=== PATIENT | female | born 1955 | race Caucasian/White ===

== ENCOUNTER 2017-06-12 22:05 | Observation (INO) | payer BC ==
[~2017-06-12] VITALS: Ht 168.9 cm; Wt 102.6 kg
[2017-06-12] MEDS ORDERED: PRAV20TA PO (22:27)
[2017-06-12] MEDS ORDERED: PRLSR20 PO (22:27)
[2017-06-12] MEDS ORDERED: LISI-461 PO (22:27)
[2017-06-12] MEDS ORDERED: ASPI81TA28 PO (22:27)
[2017-06-12] MEDS ORDERED: SODIUM CHLORIDE 0.9% 500ML 500 ML IV STA (22:50)
[2017-06-12] MEDS ORDERED: PANTOprazole INJ 80 MG in DEXTROSE 5% 100ML IV STA (22:57)
[2017-06-12] MEDS ORDERED: PANTOprazole INJ 40 MG in DEXTROSE 5% 100ML IV SCH (23:00)
[2017-06-12] MEDS ORDERED: OPTIRAY 320 IV PRN (23:00)
[2017-06-12 23:15] LABS: BASO % 0.2 %; BASO ABS # 0.02 K/uL (0-0.2); EOS % 0.4 %; EOS ABS # 0.05 K/uL (0-0.5); HEMATOCRIT 44.1 % (37-47); HEMOGLOBIN 14.8 g/dL (12.0-16.0); IG# 0.03 K/uL (0.00-0.02); LYMPH % 13.5 %; LYMPH ABS # 1.51 K/uL (1.2-3.4); MEAN CELL VOLUME 88.7 fL (80-100); MEAN CORPUSCULAR HEMOGLOBIN 29.8 pg (25-34); MEAN CORPUSCULAR HGB CONC 33.6 g/dl (32-36); MEAN PLATELET VOLUME 11.2 fL (7.4-10.4); MONO % 6.4 %; MONO ABS # 0.72 K/uL (0.11-0.59); NEUT % 79.2 %; NEUT ABS # 8.88 K/uL (1.4-6.5); PLATELET COUNT 209 K/uL (130-400); RED CELL DISTRIBUTION WIDTH CV 13.1 % (11.5-14.5); RED CELL DISTRIBUTION WIDTH SD 42.4 fL (36.4-46.3); WHITE BLOOD COUNT 11.21 K/uL (4.8-10.8)
[2017-06-12 23:27] LABS: PTT PATIENT 25.7 SECONDS (21.0-31.0)
[2017-06-12 23:37] LABS: ALBUMIN 3.8 gm/dl (3.4-5.0); ALT/SGPT 30 U/L (12-78); AST/SGOT 16 U/L (15-37); BLOOD UREA NITROGEN 14 mg/dl (7-18); CALCIUM 8.6 mg/dl (8.5-10.1); CARBON DIOXIDE 27 mmol/L (21-32); CREATININE 0.85 mg/dl (0.60-1.20); GLUCOSE 89 mg/dl (70-99); LIPASE 103 U/L (73-393); POTASSIUM 3.5 mmol/L (3.5-5.1); SODIUM 141 mmol/L (136-145)
[2017-06-12 23:42] LABS: ALKALINE PHOSPHATASE 87 U/L (45-117); TOTAL PROTEIN 7.8 gm/dl (6.4-8.2)
[2017-06-13 00:30] VITALS: Ht 168.9 cm; Wt 102.6 kg
[2017-06-13] MEDS ORDERED: ACETAMINOPHEN 325 MG TAB PO PRN ×2 (01:00→02:45)
[2017-06-13] MEDS ORDERED: ONDANSETRON INJ 2 MG/ML 2 ML VIAL IV PRN ×2 (01:00→02:45)
[2017-06-13] MEDS ORDERED: IV FLUIDS COMPLETED PRN (01:30)
--- NOTE | 2017-06-13 01:30 | History and Physical ---
History & Physical Date & Time of Service: Jun 13, 2017 at 01:20 Chief Complaint: Cramping Primary Care Physician: Darek Diop D.O. History of Present Illness Source: patient, hospital records The patient is a 62-year-old female with a past medical history of hypertension , hyperlipidemia, breast cancer that presents after an episode of syncope and bloody diarrhea. The patient states that around lunchtime today she began having lower abdominal cramping and went and had a large diarrheal bowel movement. After the bowel movement she began to have sweats and nausea, followed by a syncopal episode while she was sitting down in a chair. The patient states that she was disoriented for approximately 1 minute before she regained full consciousness. She was then taken to [facility] where she was evaluated, and workup was negative. During that time she did have a bowel movement with some blood streaks as well as a small amount of blood in the toilet. After discharge at home she again had another episode of gross blood with bowel movement, with her stating that it looked like approximately 1-2 ounces of gross blood only. The patient states she had 3 bloody bowel movements. The patient states that the abdominal discomfort she was having during this period of time was lower abdominal cramping that was about a 4 out of 10 and felt like period cramps. The patient denies any fevers , chills, chest pain, shortness of breath, or any other acute complaints. The patient states that she does have external hemorrhoids, and that she occasionally does see blood on toilet paper when she wipes but this gross blood in the toilet was different from other episodes. At this time of evaluation the patient denies any abdominal pain, cramping, nausea or vomiting Family History Noncontributory Social History Smoking Status: Never Smoker Smokeless Tobacco Use: No Alcohol Use: none Drug Use: none Occupational Status: employed Immunizations History of Influenza Vaccine: Unknown History of Tetanus Vaccine?: Unknown History of Pneumococcal: Unknown History of Hepatitis B Vaccine: Unknown Multi-Drug Resistant Organisms History of MDRO: No Allergies Coded Allergies: Lemon (Verified Adverse Reaction, Unknown, hives, 06/12/17) Home Medications Scheduled Aspirin (Aspirin Ec), 81 MG PO DAILY Lisinopril (Zestril), 10 MG PO BID Omeprazole (Prilosec), 20 MG PO DAILY Pravastatin (Pravachol ), 20 MG PO DAILY Review of Systems Constitutional: No fever, No chills, No weight loss, No fatigue Respiratory: No cough, No shortness of breath Cardiovascular: No chest pain, No palpitations Abdomen: + diarrhea, + GI bleeding, No pain, No nausea, No vomiting, No constipation Genitourinary - Female: No dysuria Endocrine: No fatigue Physical Exam Vital Signs Date Time Temp Pulse Resp B/P (MAP) Pulse Ox O2 Delivery O2 Flow Rate FiO2 06/13/17 00:10 76 18 99 06/13/17 00:01 140/90 06/12/17 23:55 72 20 97 06/12/17 23:10 70 17 96 06/12/17 22:50 95 18 97 06/12/17 22:35 71 18 97 Room Air 06/12/17 22:30 156/84 06/12/17 22:25 79 06/12/17 22:20 151/82 06/12/17 22:08 36.9 85 18 173/84 98 Room Air General Appearance: WD/WN, no apparent distress Head: normocephalic, atraumatic Eyes: normal inspection, sclerae normal Neck: supple, no carotid bruits Respiratory/Chest: chest non-tender, lungs clear, normal breath sounds Cardiovascular: regular rate, rhythm, no edema, no gallop Abdomen/GI: normal bowel sounds, non tender, soft, + pertinent finding ( external hemorrhoids) Extremities/Musculoskelatal: normal inspection, no calf tenderness, no pedal edema Neurologic/Psych: alert, normal mood/affect, oriented x 3 Diagnostics Laboratory Results Results Past 24 Hours Test 06/12/17 23:00 Range/Units White Blood Count 11.21 4.8-10.8 K/uL Red Blood Count 4.97 4.2-5.4 M/uL Hemoglobin 14.8 12.0-16.0 g/dL Hematocrit 44.1 37-47 % Mean Corpuscular Volume 88.7 80-100 fL Mean Corpuscular Hemoglobin 29.8 25-34 pg Mean Corpuscular Hemoglobin Concent 33.6 32-36 g/dl Platelet Count 209 130-400 K/uL Mean Platelet Volume 11.2 7.4-10.4 fL Neutrophils (%) (Auto) 79.2 % Lymphocytes (%) (Auto) 13.5 % Monocytes (%) (Auto) 6.4 % Eosinophils (%) (Auto) 0.4 % Basophils (%) (Auto) 0.2 % Neutrophils # (Auto) 8.88 1.4-6.5 K/uL Lymphocytes # (Auto) 1.51 1.2-3.4 K/uL Monocytes # (Auto) 0.72 0.11-0.59 K/uL Eosinophils # (Auto) 0.05 0-0.5 K/uL Basophils # (Auto) 0.02 0-0.2 K/uL RDW Standard Deviation 42.4 36.4-46.3 fL RDW Coefficient of Variation 13.1 11.5-14.5 % Immature Granulocyte % (Auto) 0.3 % Immature Granulocyte # (Auto) 0.03 0.00-0.02 K/uL Prothrombin Time 10.5 9.0-12.0 SECONDS Prothromb Time International Ratio 1.0 0.9-1.1 Activated Partial Thromboplast Time 25.7 21.0-31.0 SECONDS Partial Thromboplastin Ratio 1.0 Urine Color YELLOW Urine Appearance CLEAR CLEAR Urine pH 6.0 4.5-7.5 Urine Specific [place] 1.010 1.000-1.030 Urine Protein NEG NEG Urine Glucose (UA) NEG NEG Urine Ketones NEG NEG Urine Occult Blood TRACE NEG Urine Nitrite NEG NEG Urine Bilirubin NEG NEG Urine Urobilinogen NEG NEG Urine Leukocyte Esterase SMALL NEG Urine WBC (Auto) 1-5 0-5 /hpf Urine RBC (Auto) 0-4 0-4 /hpf Urine Hyaline Casts (Auto) 1-5 0-5 /lpf Urine Epithelial Cells (Auto) >30 0-5 /lpf Urine Bacteria (Auto) NEG NEG Sodium Level 141 136-145 mmol/L Potassium Level 3.5 3.5-5.1 mmol/L Chloride Level 108 98-107 mmol/L Carbon Dioxide Level 27 21-32 mmol/L Anion Gap 6.0 3-11 mmol/L Blood Urea Nitrogen 14 7-18 mg/dl Creatinine 0.85 0.60-1.20 mg/dl Est Creatinine Clear Calc Drug Dose 84.8 ml/min Estimated GFR () 85.7 Estimated GFR (Non- 74.0 BUN/Creatinine Ratio 16.5 10-20 Random Glucose 89 70-99 mg/dl Calcium Level 8.6 8.5-10.1 mg/dl Magnesium Level 2.0 1.8-2.4 mg/dl Total Bilirubin 0.5 0.2-1 mg/dl Direct Bilirubin 0.1 0-0.2 mg/dl Aspartate Amino Transf (AST/SGOT) 16 15-37 U/L Alanine Aminotransferase (ALT/SGPT) 30 12-78 U/L Alkaline Phosphatase 87 45-117 U/L Troponin I < 0.015 0-0.045 ng/ml Total Protein 7.8 6.4-8.2 gm/dl Albumin 3.8 3.4-5.0 gm/dl Lipase 103 73-393 U/L Impression Assessment and Plan The patient is a 62-year-old female with a past medical history of hypertension , hyperlipidemia, breast cancer that presents after an episode of syncope and bloody diarrhea 1) Acute Colitis - Observe on Med/ Surg - Abdominal CT: Appearance of acute colitis with no perforation or diverticulitis - Full Liquid Diet - H/H stable since discharge from [facility] - Received 500cc bolus in the ED and Protonix Drip - Protonix 40mg IV Daily - Stool Culture and Stool C Diff 2) HLD - Hold home Pravastatin 3) HTN - Hold home Lisinopril 4) CAD - Hold home Aspirin 5) DVT - SCDs 6) Code Status - Full Resuscitation Attending addendum: I have physically seen this patient, have supervised the medical residents activities, and agree with the H&P unless as otherwise noted. Assessment and Plan: Transverse and Descending Colon Colitis/rectal bleeding-- Admitted to the medical surgical floor She questions the possibility of intolerance to chocolate pudding eaten earlier in the day Stool culture and stool for C. difficile Continue IV fluids Protonix 40 mg IV daily Zofran 4 mg IV every 6 hours when necessary Full liquid diet CAD/hypertension-- Lisinopril and aspirin Hyperlipidemia-- Hold Pravastatin Level of Care Med/Surg Advanced Directives Existing Advance Directive: No Existing Living Will: No Existing Power of Dumpcart Driver: No Resuscitation Status FULL RESUSCITATION VTE Prophylaxis VTE Risk Assessment Done? Y/N: Yes Risk Level: Moderate Given or contraindicated: SCD's Social Service Consult None Apply
[2017-06-13 02:05] VITALS: BP 159/84; PULSE 78; TEMP 36.6; O2SAT 97
--- NOTE | 2017-06-13 03:59 | EMERGENCY ROOM VISIT NOTE ---
History First contact with patient: 22:38 Chief Complaint: GI ASSESSMENT Stated Complaint: GI BLEED Nursing Triage Summary: Syncopal episode at work, went to [facility]. Had diarrhea with blood, Hx of hemmrhoids. Had chest x-ray, head CT, blood work, urine and blood cultures. Dx with vasovagal syncope. Now having abd cramping with large amount of hematochezia with clots. Earlier dizziness, not currently. 81 ASA daily, no blood thinners. History of Present Illness The patient is a 62 year old female who presents to the Emergency Room with complaints of bloody diarrhea for the past few hours. 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 After that she became diaphoretic and weak and sat down and briefly passed out. She went to [facility] and had a negative CT scan and workup. She had another episode of diarrhea and there was some few specks of blood. Nothing overly concerning. No black stool. Patient states she went home and had 3 episodes of large bloody diarrhea that was just mainly blood. No black in it. No history GI bleeding in the past. She is on a baby aspirin. Colonoscopy for years ago was negative per patient. No history diverticulitis. Patient describes the abdominal pain as cramping, ranging in severity 4-10 to the lower abdomen. Nothing makes it better or worse. It does not radiate. Patient denies chest pain, dyspnea, fever, chills, cough, congestion, back pain, vomiting, urinary symptoms. No recent antibiotics. Review of Systems See HPI for pertinent positives & negatives. A total of 10 systems reviewed and were otherwise negative. Past Medical/Surgical History Medical Problems: (1) GI bleed Social History Smoking Status: Never Smoker Current/Historical Medications Scheduled Aspirin (Aspirin Ec), 81 MG PO DAILY Lisinopril (Zestril), 10 MG PO BID Omeprazole (Prilosec), 20 MG PO DAILY Pravastatin (Pravachol ), 20 MG PO DAILY Physical Exam Vital Signs Date Time Temp Pulse Resp B/P (MAP) Pulse Ox O2 Delivery O2 Flow Rate FiO2 06/13/17 01:00 74 23 159/89 96 06/13/17 00:45 77 16 99 06/13/17 00:30 73 24 147/80 99 06/13/17 00:30 Room Air 06/13/17 00:15 68 15 97 06/13/17 00:10 76 18 99 06/13/17 00:01 140/90 06/12/17 23:55 72 20 97 06/12/17 23:10 70 17 96 06/12/17 22:50 95 18 97 06/12/17 22:35 71 18 97 Room Air 06/12/17 22:30 156/84 06/12/17 22:25 79 06/12/17 22:20 151/82 06/12/17 22:08 36.9 85 18 173/84 98 Room Air Physical Exam VITALS: Vitals are noted on the nurse's note and reviewed by myself. Vital signs hypertensive GENERAL: Pleasant female anxious-appearing, in no acute distress, nondiaphoretic , well-developed well-nourished. SKIN: The skin was without rashes, erythema, edema, or bruising. There is no tenting of the skin. Capillary reflex less than 2 seconds. HEAD: Normocephalic atraumatic. EARS: External auditory canals clear, tympanic membranes pearly heart without erythema or effusion bilaterally. EYES: Pupils equal round and reactive to light and accommodation. Conjunctivae without injection, sclerae without icterus. Extraocular movements intact. NOSE: Patent, turbinates without inflammation or discharge. MOUTH: Mucous membranes mildly dry. Pharynx without erythema or exudate. Uvula midline. Airway patent. Tongue does not deviate. NECK: Supple without nuchal rigidity. No lymphadenopathy. No thyromegaly. Cervical spine is nontender. No JVD. HEART: Regular rate and rhythm LUNGS: Clear to auscultation bilaterally without wheezes, rales or rhonchi. No dullness to percussion. No retractions or accessory muscle use. ABDOMEN: Positive bowel sounds x 4. Normal tympanic percussion. Soft, tender to palpation lower abdomen, no CVA tenderness, without masses or organomegaly. Tapia sign negative. No guarding or rebound tenderness. Rectal exam: No fissures or tears, hemorrhoids present, bright red blood in the vault. MUSCULOSKELETAL: No muscle atrophy, erythema, or edema noted. NEURO: Patient was alert and oriented to person place and time. Normal sensation to light and sharp touch. No focal neurological deficits. Medical Decision & Procedures Laboratory Results 06/12/17 23:00 Red Blood Count 4.97, Mean Corpuscular Volume 88.7, Mean Corpuscular Hemoglobin 29.8, Mean Corpuscular Hemoglobin Concent 33.6, Mean Platelet Volume 11.2, Neutrophils (%) (Auto) 79.2, Lymphocytes (%) (Auto) 13.5, Monocytes (%) (Auto) 6.4, Eosinophils (%) (Auto) 0.4, Basophils (%) (Auto) 0.2, Neutrophils # (Auto) 8.88, Lymphocytes # (Auto) 1.51, Monocytes # (Auto) 0.72, Eosinophils # (Auto) 0.05, Basophils # (Auto) 0.02 06/12/17 23:00 Test 06/12/17 23:00 White Blood Count 11.21 K/uL (4.8-10.8) Red Blood Count 4.97 M/uL (4.2-5.4) Hemoglobin 14.8 g/dL (12.0-16.0) Hematocrit 44.1 % (37-47) Mean Corpuscular Volume 88.7 fL (80-100) Mean Corpuscular Hemoglobin 29.8 pg (25-34) Mean Corpuscular Hemoglobin Concent 33.6 g/dl (32-36) Platelet Count 209 K/uL (130-400) Mean Platelet Volume 11.2 fL (7.4-10.4) Neutrophils (%) (Auto) 79.2 % Lymphocytes (%) (Auto) 13.5 % Monocytes (%) (Auto) 6.4 % Eosinophils (%) (Auto) 0.4 % Basophils (%) (Auto) 0.2 % Neutrophils # (Auto) 8.88 K/uL (1.4-6.5) Lymphocytes # (Auto) 1.51 K/uL (1.2-3.4) Monocytes # (Auto) 0.72 K/uL (0.11-0.59) Eosinophils # (Auto) 0.05 K/uL (0-0.5) Basophils # (Auto) 0.02 K/uL (0-0.2) RDW Standard Deviation 42.4 fL (36.4-46.3) RDW Coefficient of Variation 13.1 % (11.5-14.5) Immature Granulocyte % (Auto) 0.3 % Immature Granulocyte # (Auto) 0.03 K/uL (0.00-0.02) Prothrombin Time 10.5 SECONDS (9.0-12.0) Prothromb Time International Ratio 1.0 (0.9-1.1) Activated Partial Thromboplast Time 25.7 SECONDS (21.0-31.0) Partial Thromboplastin Ratio 1.0 Urine Color YELLOW Urine Appearance CLEAR (CLEAR) Urine pH 6.0 (4.5-7.5) Urine Specific [place] 1.010 (1.000-1.030) Urine Protein NEG (NEG) Urine Glucose (UA) NEG (NEG) Urine Ketones NEG (NEG) Urine Occult Blood TRACE (NEG) Urine Nitrite NEG (NEG) Urine Bilirubin NEG (NEG) Urine Urobilinogen NEG (NEG) Urine Leukocyte Esterase SMALL (NEG) Urine WBC (Auto) 1-5 /hpf (0-5) Urine RBC (Auto) 0-4 /hpf (0-4) Urine Hyaline Casts (Auto) 1-5 /lpf (0-5) Urine Epithelial Cells (Auto) >30 /lpf (0-5) Urine Bacteria (Auto) NEG (NEG) Anion Gap 6.0 mmol/L (3-11) Est Creatinine Clear Calc Drug Dose 84.8 ml/min Estimated GFR () 85.7 Estimated GFR (Non- 74.0 BUN/Creatinine Ratio 16.5 (10-20) Calcium Level 8.6 mg/dl (8.5-10.1) Magnesium Level 2.0 mg/dl (1.8-2.4) Total Bilirubin 0.5 mg/dl (0.2-1) Direct Bilirubin 0.1 mg/dl (0-0.2) Aspartate Amino Transf (AST/SGOT) 16 U/L (15-37) Alanine Aminotransferase (ALT/SGPT) 30 U/L (12-78) Alkaline Phosphatase 87 U/L (45-117) Troponin I < 0.015 ng/ml (0-0.045) Total Protein 7.8 gm/dl (6.4-8.2) Albumin 3.8 gm/dl (3.4-5.0) Lipase 103 U/L (73-393) Medications Administered Medications (Trade) Dose Ordered Sig/Suraj Route Start Time Stop Time Status Last Admin Dose Admin Sodium Chloride 500 ml @ 999 mls/hr Q31M STAT IV 06/12/17 22:50 06/12/17 23:20 DC 06/13/17 00:14 999 MLS/HR Pantoprazole Sodium 80 mg/ Dextrose 120 ml @ 480 mls/hr NOW STAT IV 06/12/17 22:57 06/12/17 23:11 DC 06/12/17 23:10 480 MLS/HR Pantoprazole Sodium 40 mg/ Dextrose 100 ml @ 20 mls/hr Q5H IV 06/12/17 23:00 06/13/17 03:59 06/12/17 23:47 20 MLS/HR ED Course Prior records/ancillary studies reviewed. Triage Nursing notes reviewed. Additional history obtained from the family. The patient's history was concerning for possible gastrointestinal bleeding. Differential diagnosis: Etiologies such as diverticulosis, AVM, coagulopathy, colitis, inflammatory bowel disease, malignancy, Kaila-Napier tear, esophagitis, peptic ulcer disease , variceal bleed, gastritis, fissure, hemorrhoids, as well as others were entertained. Physical exam: As above. The patients vital signs were stable. ER treatment provided: Protonix drip, IV fluids On reassessment the patient felt better. Diagnostics interpreted by me: ECG: Normal sinus, normal intervals, no acute ST-T wave changes. Impression normal sinus rhythm interpreted by myself The labs revealed stable H&H. Blood bank pending Imaging studies: CT concerning for colitis per stat radiology I obtain the records from [facility] and did review them. Patient had a negative head scan. Stable H&H. Consultation: A consultation was placed with Dr. Lino, hospitalist. The case was discussed and diagnostics were reviewed. The patient was evaluated in the ER for further treatment. This appears to be consistent with colitis with GI bleeding. Patient is stable H&H. She was not actively bleeding here in the ER. CT scan concerning for colitis. She's had 3 large episodes of bloody diarrhea. She will be evaluated by medicine. She is hydrated as above and started on Protonix. She is on a baby aspirin. No history GI bleeding in the past.. By the evaluation outlined above emergent etiologies such as esophageal perforation, peptic ulcer disease, variceal bleed, coagulopathy, gastritis, epistaxis, malignancy, as well as others were deemed relatively unlikely. The pt informed about the findings as listed above. All questions were answered and pleased with the treatment. Case reviewed with my attending The chart was completed utilizing kwiry Speech voice recognition software. Grammatical errors, random word insertions, pronoun errors, and incomplete sentences are an occassional consequence of this system due to software limitations, ambient noise, and hardware issues. Any formal questions or concerns about the content, text, or information contained within the body of this dictation should be directly addressed to the physician pediatric medical assistant for clarification. Medical Decision As above Medication Reconcilliation Current Medication List: was personally reviewed by me Blood Pressure Screening Patient's blood pressure: Elevated blood pressure Blood pressure disposition: Elevated BP felt to be situational Impression Primary Impression: GI bleed Additional Impression: Colitis Departure Information Dispostion Still a Patient Condition FAIR Referrals Darek Diop D.O. (PCP) Forms HOME CARE DOCUMENTATION FORM, IMPORTANT VISIT INFORMATION Patient Instructions My [facility] Problem Qualifiers Primary Impression: GI bleed GI bleed type/associated pathology: unspecified gastrointestinal hemorrhage type Qualified Codes: K92.2 - Gastrointestinal hemorrhage, unspecified
[2017-06-13 07:23] VITALS: BP 145/79; PULSE 73; TEMP 36.7; O2SAT 97
--- NOTE | 2017-06-13 07:31 | DIAGNOSTIC IMAGING REPORT ---
ABDOMEN AND PELVIS CT WITH IV CONTRAST CT DOSE: 950.20 mGy.cm HISTORY: Lower abdominal pain. Rectal bleeding. TECHNIQUE: Multiaxial CT images of the abdomen and pelvis were performed following the use of intravenous contrast. A dose lowering technique was utilized adhering to the principles of ALARA. COMPARISON STUDY: None. FINDINGS: Linear densities within the lung bases likely represent subsegmental atelectasis. No pneumoperitoneum. No pneumatosis. No suspicious lytic or blastic osseous lesions. Cholecystectomy. The liver, pancreas, spleen, and adrenal glands are unremarkable. No hydronephrosis. Normal right kidney. A 9 mm hypodense lesion within the upper pole of the left kidney. This is too small to characterize but favors a cyst. The bladder is unremarkable. Hysterectomy. A few colonic diverticula. No evidence for bowel obstruction. Moderate thickening involving the splenic flexure of the colon and descending colon with mild pericolonic fat stranding. This is consistent with a nonspecific colitis. Of note, the celiac and mesenteric vessels appear patent. The appendix appears surgically absent. IMPRESSION: 1. Moderate bowel wall thickening involving the splenic flexure of the colon and descending colon consistent with a nonspecific colitis. This could be due to an infectious, inflammatory, or ischemic process. 2. No evidence for bowel obstruction. 3. Cholecystectomy and hysterectomy. Electronically signed by: Gabe Paul M.D. 06/13/2017 7:29 AM Dictated Date/Time: 06/13/2017 7:25 AM
[2017-06-13] MEDS ORDERED: PANTOprazole INJ 40 MG in SYRINGE 0 ML IV SCH ×2 (09:00→11:00)
[2017-06-13 11:06] LABS: HEMATOCRIT 42.6 % (37-47); HEMOGLOBIN 14.7 g/dL (12.0-16.0)
[2017-06-13 13:08] LABS: ISTAT CREATININE 0.8 mg/dl (0.6-1.3); ISTAT IONIZED CALCIUM 1.12 mmol/l (1.12-1.32); ISTAT POTASSIUM 3.5 mEq/L (3.3-5.0)
[2017-06-13 15:28] VITALS: BP 160/92; PULSE 70; TEMP 37.1; O2SAT 96
[2017-06-13 16:00] VITALS: O2SAT 96
--- NOTE | 2017-06-13 16:43 | Family Medicine Progress Note ---
Progress Note Date of Service Jun 13, 2017. Subjective Pt evaluation today including: conversation w/ patient, conversation w/ family , physical exam, chart review, lab review, review of studies, review of inpatient medication list Pain: Patient reports some cramping, but no pain PO Intake: Full liquid diet Voiding: no voiding problems Patient continues to report small volume liquid stool with rommel blood in the bowl. Constitutional: No fever, No chills, No sweats, No weight loss, No weakness , No fatigue, No problem reported Respiratory: No cough, No sputum, No wheezing, No shortness of breath, No dyspnea on exertion, No dyspnea at rest, No hemoptysis, No problem reported Cardiovascular: No chest pain, No orthopnea, No PND, No edema, No claudication, No palpitations, No problem reported Abdomen: + see HPI, + GI bleeding, + problem reported (cramping and mucous in stool reported), No pain, No nausea, No vomiting, No diarrhea, No constipation Female : No dysuria, No urinary frequency, No hematuria, No incontinence, No abnormal vaginal bleeding, No vaginal discharge, No problem reported All Other Systems: Reviewed and Negative Medications Current Inpatient Medications Medications (Trade) Dose Ordered Sig/Suraj Route Start Time Stop Time Status Last Admin Dose Admin Ioversol (Optiray 320) 100 ml UD PRN IV 06/12/17 23:00 06/16/17 22:59 Miscellaneous (Iv Fluids Completed) 1 ea PRN PRN N/A 06/13/17 01:30 06/13/18 01:29 Acetaminophen (Tylenol Tab) 650 mg Q4H PRN PO 06/13/17 02:45 07/13/17 02:44 Ondansetron HCl (Zofran Inj) 4 mg Q6H PRN IV 06/13/17 02:45 07/13/17 02:44 Pantoprazole Sodium 40 mg/ Syringe 10 ml @ 5 mls/min DAILY@11 IV 06/13/17 11:00 07/13/17 10:59 06/13/17 11:18 5 MLS/MIN Objective Vital Signs Date Time Temp Pulse Resp B/P (MAP) Pulse Ox O2 Delivery O2 Flow Rate FiO2 06/13/17 15:28 37.1 70 18 160/92 (114) 96 Room Air 06/13/17 10:56 Room Air 06/13/17 07:23 36.7 73 16 145/79 (101) 97 06/13/17 02:05 36.6 78 18 159/84 (109) 97 Room Air 06/13/17 02:05 Room Air 06/13/17 01:50 64 15 97 06/13/17 01:35 82 18 95 06/13/17 01:30 143/92 06/13/17 01:20 68 21 97 06/13/17 01:15 68 14 98 06/13/17 01:00 74 23 159/89 96 06/13/17 00:45 77 16 99 06/13/17 00:30 73 24 147/80 99 06/13/17 00:30 Room Air 06/13/17 00:15 68 15 97 06/13/17 00:10 76 18 99 06/13/17 00:01 140/90 06/12/17 23:55 72 20 97 06/12/17 23:10 70 17 96 06/12/17 22:50 95 18 97 06/12/17 22:35 71 18 97 Room Air 06/12/17 22:30 156/84 06/12/17 22:25 79 06/12/17 22:20 151/82 06/12/17 22:08 36.9 85 18 173/84 98 Room Air Physical Exam General Appearance: WD/WN, no apparent distress Eyes: normal inspection, PERRL, EOMI ENT: normal ENT inspection, hearing grossly normal, pharynx normal Neck: supple, no adenopathy, no JVD Respiratory/Chest: chest non-tender, lungs clear, normal breath sounds, no respiratory distress, no accessory muscle use Cardiovascular: regular rate, rhythm, no edema, no gallop, no JVD, no murmur Abdomen: normal bowel sounds, non tender, soft, no organomegaly, no pulsatile mass Extremities: normal range of motion, non-tender, normal inspection, no pedal edema, no calf tenderness 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, no motor/sensory deficits, alert, normal mood/affect, oriented x 3 Skin: normal color, warm/dry, no rash Laboratory Results 06/12/17 23:00 Red Blood Count 4.97, Mean Corpuscular Volume 88.7, Mean Corpuscular Hemoglobin 29.8, Mean Corpuscular Hemoglobin Concent 33.6, Mean Platelet Volume 11.2, Neutrophils (%) (Auto) 79.2, Lymphocytes (%) (Auto) 13.5, Monocytes (%) (Auto) 6.4, Eosinophils (%) (Auto) 0.4, Basophils (%) (Auto) 0.2, Neutrophils # (Auto) 8.88, Lymphocytes # (Auto) 1.51, Monocytes # (Auto) 0.72, Eosinophils # (Auto) 0.05, Basophils # (Auto) 0.02 06/13/17 10:41 06/12/17 23:00 Test 06/12/17 23:00 06/12/17 23:10 06/13/17 16:18 White Blood Count 11.21 K/uL (4.8-10.8) Red Blood Count 4.97 M/uL (4.2-5.4) Hemoglobin 14.8 g/dL (12.0-16.0) Hematocrit 44.1 % (37-47) Mean Corpuscular Volume 88.7 fL (80-100) Mean Corpuscular Hemoglobin 29.8 pg (25-34) Mean Corpuscular Hemoglobin Concent 33.6 g/dl (32-36) Platelet Count 209 K/uL (130-400) Mean Platelet Volume 11.2 fL (7.4-10.4) Neutrophils (%) (Auto) 79.2 % Lymphocytes (%) (Auto) 13.5 % Monocytes (%) (Auto) 6.4 % Eosinophils (%) (Auto) 0.4 % Basophils (%) (Auto) 0.2 % Neutrophils # (Auto) 8.88 K/uL (1.4-6.5) Lymphocytes # (Auto) 1.51 K/uL (1.2-3.4) Monocytes # (Auto) 0.72 K/uL (0.11-0.59) Eosinophils # (Auto) 0.05 K/uL (0-0.5) Basophils # (Auto) 0.02 K/uL (0-0.2) RDW Standard Deviation 42.4 fL (36.4-46.3) RDW Coefficient of Variation 13.1 % (11.5-14.5) Immature Granulocyte % (Auto) 0.3 % Immature Granulocyte # (Auto) 0.03 K/uL (0.00-0.02) Prothrombin Time 10.5 SECONDS (9.0-12.0) Prothromb Time International Ratio 1.0 (0.9-1.1) Activated Partial Thromboplast Time 25.7 SECONDS (21.0-31.0) Partial Thromboplastin Ratio 1.0 Urine Color YELLOW Urine Appearance CLEAR (CLEAR) Urine pH 6.0 (4.5-7.5) Urine Specific [place] 1.010 (1.000-1.030) Urine Protein NEG (NEG) Urine Glucose (UA) NEG (NEG) Urine Ketones NEG (NEG) Urine Occult Blood TRACE (NEG) Urine Nitrite NEG (NEG) Urine Bilirubin NEG (NEG) Urine Urobilinogen NEG (NEG) Urine Leukocyte Esterase SMALL (NEG) Urine WBC (Auto) 1-5 /hpf (0-5) Urine RBC (Auto) 0-4 /hpf (0-4) Urine Hyaline Casts (Auto) 1-5 /lpf (0-5) Urine Epithelial Cells (Auto) >30 /lpf (0-5) Urine Bacteria (Auto) NEG (NEG) Est Creatinine Clear Calc Drug Dose 84.8 ml/min Estimated GFR () 85.7 Estimated GFR (Non- 74.0 BUN/Creatinine Ratio 16.5 (10-20) Calcium Level 8.6 mg/dl (8.5-10.1) Magnesium Level 2.0 mg/dl (1.8-2.4) Total Bilirubin 0.5 mg/dl (0.2-1) Direct Bilirubin 0.1 mg/dl (0-0.2) Aspartate Amino Transf (AST/SGOT) 16 U/L (15-37) Alanine Aminotransferase (ALT/SGPT) 30 U/L (12-78) Alkaline Phosphatase 87 U/L (45-117) Troponin I < 0.015 ng/ml (0-0.045) Total Protein 7.8 gm/dl (6.4-8.2) Albumin 3.8 gm/dl (3.4-5.0) Lipase 103 U/L (73-393) Bedside Hemoglobin 15.0 g/dl (12.0-16.0) Bedside Hematocrit 44 % (37-47) Bedside Sodium 142 mEq/L (135-144) Bedside Potassium 3.5 mEq/L (3.3-5.0) Bedside Chloride 105 mEq/L (101-112) Bedside Total CO2 24 mEq/l (24-31) Anion Gap 17.0 mmol/L (16-25) Bedside Blood Urea Nitrogen 14 mg/dl (7-18) Bedside Creatinine 0.8 mg/dl (0.6-1.3) Bedside Glucose (other) 93 mg/dl (70-99) Bedside Ionized Calcium (Candis) 1.12 mmol/l (1.12-1.32) Date/Time Source Procedure Growth Status 06/13/17 00:00 Stool C.difficile Toxin B Gene (PCR) - Final No C. difficile toxin B gene detected Complete Assessment and Plan The patient is a 62-year-old female with a past medical history of hypertension , hyperlipidemia, breast cancer that presents after an episode of syncope and bloody diarrhea Rectal bleeding with Acute Colitis noted on CT scan - Abdominal CT: Appearance of acute colitis with no perforation or diverticulitis - H/H stable since discharge from [facility]: Hgb of 14.7 - Protonix 40mg IV Daily - Full Liquid Diet - Stool C Diff NEGATIVE - Stool Culture, shiga toxin pending - GI consult placed, appreciate recommendations, patient for colonoscopy tomorrow. - Lactic acid level normal Syncope - Presentation consistent with vasovagal. follow HLD - Hold home Pravastatin HTN - Hold home Lisinopril CAD - Hold home Aspirin Code: Full DVTP: SCDs Dispo: Med/surg; likely discharge next 24-48 hrs Resident Tracking Resident Involvement: Resident Care Provided Care Provided: Adult Hospital Medicine Reviewed: Pt Seen/Exam by Me History had some more rectal bleeding this morning. blood looked old and not like yesterday when it was fresh. syncopal event yesterday - preceded by feeling hot and clammy Constitutional: denies: fever Respiratory: negative: short of breath Cardiovascular: denies chest pain Gastrointestinal/Abdominal: negative: abdominal pain General Appearance: no apparent distress Respiratory: lungs clear, no respiratory distress Cardiovascular: regular rate, rhythm Gastrointestinal: normal bowel sounds, non tender, soft Neurologic/Psychiatric: alert, oriented x 3 Assessment/Plan Resident Physician Supervision Note: I independently interviewed and examined the patient and verified the davis history and physical, reviewed labs and image studies, discussed the case with the resident Dr. Hernandez and agree with the findings and care plan.
--- NOTE | 2017-06-13 17:36 | GASTROINTESTINAL CONSULTATION ---
DATE OF CONSULTATION: 06/13/2017 REASON FOR EVALUATION: Rectal bleeding. HISTORY OF PRESENT ILLNESS: The patient is a 62-year-old who was at work yesterday afternoon and had the urge to move her bowels. She had a little bit of a bloody bowel movement and became syncopal and passed out. She was transferred to [facility] where she was found to have a normal blood count. She was released from the hospital, but then after she got home, she had a very explosive bloody bowel movement with some crampy left lower quadrant pain and was brought to [facility] today. CT scan of the abdomen shows some thickening of the left colon consistent with a colitis. Stool specimen has been obtained for culture and C. diff and she has been hospitalized for further evaluation. She did have a colonoscopy 3 years ago in [place] which she reports is being totally normal without polyps, irritation or diverticulosis. PAST MEDICAL HISTORY: Remarkable for breast cancer. She also has hypertension and hyperlipidemia. MEDICATIONS: Aspirin, Zestril, Prilosec, and Pravachol. ALLERGIES: MARISELA. SOCIAL HISTORY: The patient is employed, does not smoke. FAMILY HISTORY: Noncontributory except that her father did have colon polyps. REVIEW OF SYSTEMS: The patient is having a little bit of cramping across the mid section of her abdomen at this time. PHYSICAL EXAMINATION: GENERAL: The patient appears in no acute distress. VITAL SIGNS: Blood pressure is 140/90 and pulse 76. She is afebrile. ABDOMEN: Shows laparoscopic scars of hysterectomy for endometriosis and a tubal ligation and there are no masses or tenderness. Liver and spleen were normal. LUNGS: Clear. HEART: Showed normal S1 and S2, regular rate and rhythm without murmurs, rubs, or gallops. LABORATORY DATA: Shows a white count of 11.21, hemoglobin 14.8, platelets are 209,000. BUN is 14, creatinine 0.85. Liver tests are normal. IMPRESSION: The patient is having some rectal bleeding of unclear etiology. This is acute onset with some thickening of the left colon on CT scan, this could represent an infection and stool culture and Clostridium difficile are pending. PLAN: I plan on proceeding with a bowel prep and a colonoscopy tomorrow for further evaluation. In the meantime, we will also get a lactic acid level.
[2017-06-13] MEDS: LAVAGE SOLUTION 4000ML PO SCH (18:35)
[2017-06-13 22:38] VITALS: BP 135/82; PULSE 68; TEMP 36.6; O2SAT 96
[2017-06-14] VITALS: O2SAT 96
[2017-06-14] MEDS: LAVAGE SOLUTION 4000ML PO SCH (06:00)
[2017-06-14 06:12] LABS: BASO % 0.3 %; BASO ABS # 0.02 K/uL (0-0.2); EOS % 2.3 %; EOS ABS # 0.16 K/uL (0-0.5); HEMATOCRIT 42.4 % (37-47); HEMOGLOBIN 14.4 g/dL (12.0-16.0); IG# 0.01 K/uL (0.00-0.02); LYMPH % 26.4 %; LYMPH ABS # 1.87 K/uL (1.2-3.4); MEAN CORPUSCULAR HEMOGLOBIN 29.9 pg (25-34); MONO % 7.8 %; MONO ABS # 0.55 K/uL (0.11-0.59); NEUT % 63.1 %; NEUT ABS # 4.46 K/uL (1.4-6.5); PLATELET COUNT 186 K/uL (130-400); RED CELL DISTRIBUTION WIDTH CV 13.1 % (11.5-14.5); RED CELL DISTRIBUTION WIDTH SD 41.9 fL (36.4-46.3); WHITE BLOOD COUNT 7.07 K/uL (4.8-10.8)
[2017-06-14 07:43] VITALS: BP 144/83; PULSE 66; TEMP 36.7; O2SAT 94
[2017-06-14 08:00] VITALS: O2SAT 96
--- NOTE | 2017-06-14 11:15 | History & Physical Bridge Note ---
H&P Re-Evaluation Bridge Note: I have examined the patient, reviewed the History & Physical and in the interval since the performance of the History & Physical I have noted the following changes of clinical significance: No changes noted
[2017-06-14] MEDS ORDERED: SODIUM CHLORIDE 0.9% 500ML 500 ML IV ONE (11:30)
[2017-06-14] MEDS ORDERED: EpHEDrine SULFATE INJ 50 MG/ML AMP IV PRN (11:45)
[2017-06-14] MEDS ORDERED: ATROPINE SULFATE 0.1 MG/ML 5ML SYR IV PRN (11:45)
[2017-06-14] MEDS ORDERED: LIDOCAINE HCL 2% 2 ML VIAL (20MG/ML) ONE (11:54)
[2017-06-14] MEDS ORDERED: PROPOFOL IV EMULSION 10 MG/ML 20 ML VIAL IV ONE ×2 (11:54)
--- NOTE | 2017-06-14 12:10 | Anesthesiology Progress Note ---
Anesthesia Post Op Note Date & Time Jun 14, 2017 at 12:10 Vital Signs Pain Intensity: 0.0 Vital Signs Past 12 Hours Date Time Temp Pulse Resp B/P (MAP) Pulse Ox O2 Delivery O2 Flow Rate FiO2 06/14/17 12:00 67 20 132/87 (102) 97 Room Air 06/14/17 11:10 36.7 73 18 152/76 (101) 98 Room Air 06/14/17 08:00 96 Room Air 06/14/17 07:43 36.7 66 16 144/83 (103) 94 Notes Mental Status: alert / awake / arousable, participated in evaluation Pt Amnestic to Procedure: Yes Nausea / Vomiting: adequately controlled Pain: adequately controlled Airway Patency, RR, SpO2: stable & adequate BP & HR: stable & adequate Hydration State: stable & adequate Anesthetic Complications: no major complications apparent
--- NOTE | 2017-06-14 12:15 | GI REPORT ---
Procedure Date: 06/14/2017 11:22 AM Procedure: Colonoscopy Indications: Generalized abdominal pain, Hematochezia Medicines: Propofol per Anesthesia Complications: No immediate complications. Estimated blood loss: Minimal. Estimated Blood Loss: Estimated blood loss was minimal. Procedure: Pre-Anesthesia Assessment: - Prior to the procedure, a History and Physical was performed, and patient medications and allergies were reviewed. The patient's tolerance of previous anesthesia was also reviewed. The risks and benefits of the procedure and the sedation options and risks were discussed with the patient. All questions were answered, and informed consent was obtained. Prior Anticoagulants: The patient has taken no previous anticoagulant or antiplatelet agents. ASA Grade Assessment: II - A patient with mild systemic disease. After reviewing the risks and benefits, the patient was deemed in satisfactory condition to undergo the procedure. After I obtained informed consent, the scope was passed under direct vision. Throughout the procedure, the patient's blood pressure, pulse, and oxygen saturations were monitored continuously. The Scope was introduced through the anus and advanced to the terminal ileum, with identification of the appendiceal orifice and IC valve. The colonoscopy was performed without difficulty. The patient tolerated the procedure well. The quality of the bowel preparation was good. Findings: The perianal and digital rectal examinations were normal. Pertinent negatives include normal sphincter tone, no palpable rectal lesions and no anal lesion or abnormality was detected. Localized moderate inflammation characterized by congestion (edema), erosions and erythema was found from 40 to 50 cm proximal to the anus. Biopsies were taken with a cold forceps for histology. Estimated blood loss was minimal. Verification of patient identification for the specimen was done by the physician and emissions testing technician using the patient's name and medical record number. The exam was otherwise without abnormality. The terminal ileum appeared normal. Non-bleeding external and internal hemorrhoids were found during retroflexion. The hemorrhoids were mild. The exam was otherwise without abnormality. Impression: - Localized moderate inflammation was found from 40 to 50 cm proximal to the anus secondary to ischemic colitis. Biopsied. - The examination was otherwise normal. - The examined portion of the ileum was normal. - Non-bleeding external and internal hemorrhoids. - The examination was otherwise normal. Recommendation: - Discharge patient to home (ambulatory). - Resume regular diet. - Continue present medications. - Await pathology results. - Repeat colonoscopy for surveillance based on pathology results. - Return to referring physician as previously scheduled. MD Joon Goodwin MD 06/14/2017 12:10:30 PM This report has been signed electronically. Note Initiated On: 06/14/2017 11:22 AM I attest to the content of the Intraoperative Record and orders documented therein, exceptions below
--- NOTE | 2017-06-14 12:50 | Discharge Instructions ---
Discharge Instructions Date of Service Jun 14, 2017. Admission Reason for Admission: Gi Bleed Discharge Discharge Diagnosis / Problem: GI Bleed Discharge Goals Goal(s): Decrease discomfort, Learn about illness Activity Recommendations Activity Limitations: per Instructions/Follow-up section . Instructions / Follow-Up Instructions / Follow-Up During this admission you were investigated for rectal bleeding. Fortunately your bleeding improved throughout your stay. Your colonoscopy showed some colitis, which may or may not correlate with your bleeding. You should follow up with your primary care physician to await results of the biopsies that were taken. Resume your normal diet and medications. Depending on what the biopsies show, this may change when your next colonoscopy will be. Your stool was negative for c.dif infection, and there has been no growth to date for e. coli, shigella, salmonella, or campylobacter, which is a good sign. If any of your symptoms return, please present to your PCP or the ED. Follow up with your primary care physician within the next week to discuss this hospital stay. Current Hospital Diet Patient's current hospital diet: Clear Liquid Diet Discharge Diet Recommended Diet: Regular Diet Procedures Procedures Performed: Colonoscopy with bx Pending Studies Studies pending at discharge: yes List of pending studies: Final stool cultures; preliminary results have been negative. Medical Emergencies . Who to Call and When: Medical Emergencies: If at any time you feel your situation is an emergency, please call 911 immediately. . Non-Emergent Contact Non-Emergency issues call your: Primary Care Provider . . "Provider Documentation" section prepared by Iman Hernandez. . VTE Core Measure Inpt VTE Proph given/why not?: SCD's
[2017-06-14 13:02] VITALS: BP 162/94; PULSE 61; TEMP 36.7; O2SAT 96
--- NOTE | 2017-06-14 14:39 | GASTROENTEROLOGY PROGRESS NOTE ---
DATE: 06/14/2017 GASTROENTEROLOGY UPDATE SUBJECTIVE: The patient underwent a colonoscopy today. There was evidence of ischemic colitis changes from 40-50 cm in the left colon (descending region). Biopsies were taken. There were no other lesions detected into the terminal ileal. The patient's symptoms were most consistent with ischemic colitis (abdominal pain followed by diarrhea that became bloody). Would resume all of her outpatient medications. It may be reasonable to have the CT scan reviewed for any evidence of vascular insufficiency for her history of ischemic colitis, although this is the first time event for her. Dr. Sage will be covering the GI service this weekend. KAMAR
--- NOTE | 2017-06-15 00:06 | Discharge Summary ---
Discharge Summary Date of Service Jun 14, 2017. Discharge Summary Admission Date: Jun 13, 2017 at 01:13 Discharge Date: Jun 14, 2017 Discharge Disposition: Home Principal Diagnosis: Acute GI bleed Problems/Secondary Diagnoses: HTN, HLD, Breast Cancer Immunizations: Have You Had Influenza Vaccine: Unknown History of Tetanus Vaccine?: Unknown History of Pneumococcal: Unknown History of Hepatitis B Vaccine: Unknown Medication Reconciliation Continued Medications: Aspirin (Aspirin Ec) 81 Mg Tab 81 MG PO DAILY Lisinopril (Zestril) 10 Mg Tab 10 MG PO BID, TAB Omeprazole (Prilosec) 20 Mg Capcr 20 MG PO DAILY, CAP Pravastatin (Pravachol ) 20 Mg Tab 20 MG PO DAILY, TAB Discharge Exam ROS: Constitutional: No fever, No chills, No sweats, No weight loss, No weakness, No fatigue, No problem reported Respiratory: No cough, No sputum, No wheezing, No shortness of breath, No dyspnea on exertion, No dyspnea at rest, No hemoptysis, No problem reported Cardiovascular: No chest pain, No orthopnea, No PND, No edema, No claudication, No palpitations, No problem reported Abdomen: No pain, No nausea, No vomiting, No diarrhea, No constipation, No bleeding Female : No dysuria, No urinary frequency, No hematuria, No incontinence, No abnormal vaginal bleeding, No vaginal discharge, No problem reported All Other Systems: Reviewed and Negative PE General Appearance: WD/WN, no apparent distress Eyes: normal inspection, PERRL, EOMI ENT: normal ENT inspection, hearing grossly normal, pharynx normal Neck: supple, no adenopathy, no JVD Respiratory/Chest: chest non-tender, lungs clear, normal breath sounds, no respiratory distress, no accessory muscle use Cardiovascular: regular rate, rhythm, no edema, no gallop, no JVD, no murmur Abdomen: normal bowel sounds, non tender, soft, no organomegaly, no pulsatile mass Extremities: normal range of motion, non-tender, normal inspection, no pedal edema, no calf tenderness 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 The patient states that she began having lower abdominal cramping and had a large diarrheal bowel movement. After the bowel movement she began to have sweats and nausea, followed by a syncopal episode while she was sitting down in a chair. The patient states that she was disoriented for approximately 1 minute before she regained full consciousness. She was then taken to [facility] where she was evaluated, and workup was negative. During that time she did have a bowel movement with some blood streaks as well as a small amount of blood in the toilet. After discharge at home she again had another episode of gross blood with bowel movement, with her stating that it looked like approximately 1-2 ounces of gross blood only. The patient states she had 3 bloody bowel movements. The patient states that the abdominal discomfort she was having during this period of time was lower abdominal cramping that was about a 4 out of 10 and felt like period cramps. The patient denied any fevers, chills, chest pain, shortness of breath, or any other acute complaints. The patient states that she does have external hemorrhoids, and that she occasionally does see blood on toilet paper when she wipes but this gross blood in the toilet was different from other episodes. Rectal bleeding with Acute Colitis noted on CT scan - Abdominal CT: Appearance of acute colitis with no perforation or diverticulitis - H/H stable since discharge from [facility]: Hgb of 14.7 - Stool C Diff NEGATIVE, Stool Culture, shiga toxin negative, Lactic acid level normal - GI consult placed, appreciate recommendations, colonoscopy showed an area of ( possible ischemic) colitis that was biopsied - Continue home meds Syncope - Presentation consistent with vasovagal. Total Time Spent: Greater than 30 minutes This includes examination of the patient, discharge planning, medication reconciliation, and communication with other providers. Discharge Instructions Please refer to the electronic Patient Visit Report (Discharge Instructions) for additional information. Follow-Up With PCP, gastroenterology as needed Additional Copies To Darek Diop D.O. Resident Tracking Resident Involvement: Resident Care Provided Care Provided: Adult [facility] Medicine Reviewed: Pt Seen/Exam by Me History no dizziness no major rectal bleeding Constitutional: denies: fever Respiratory: negative: short of breath Cardiovascular: denies chest pain General Appearance: no apparent distress Respiratory: lungs clear, no respiratory distress Cardiovascular: regular rate, rhythm Neurologic/Psychiatric: alert, oriented x 3 Assessment/Plan Resident Physician Supervision Note: I independently interviewed and examined the patient and verified the davis history and physical, reviewed labs and image studies, discussed the case with the resident Dr. Hernandez and agree with the findings and care plan. Time spent in discharge 35 min
== END 2017-06-14 14:41 | disposition home or self-care (01) ==
LOC: C.EDB 22:08 → EDSEX 22:08 → C.MS2W 06-13 01:13 → ENRESERV 06-13 01:35
PROVIDERS: ADMIT Student in an Organized Health Care Education/Training Program; ATTEND Family Medicine
DX: K55.9 Vascular disorder of intestine, unspecified (principal); I25.10 Atherosclerotic heart disease of native coronary artery without angina pectoris; I10 Essential (primary) hypertension; E78.5 Hyperlipidemia, unspecified; Z79.82 Long term (current) use of aspirin; Z79.899 Other long term (current) drug therapy; K21.9 Gastro-esophageal reflux disease without esophagitis; E66.9 Obesity, unspecified; Z68.36 Body mass index [BMI] 36.0-36.9, adult; Z85.3 Personal history of malignant neoplasm of breast; Z92.21 Personal history of antineoplastic chemotherapy